=== PATIENT | male | born 1945 | race Caucasian/White ===

== ENCOUNTER 2021-08-02 12:01 | Inpatient (IN) | payer MEDICARE, OTHER ==
[~2021-08-02] VITALS: Ht 175.3 cm; Wt 62.6 kg
[2021-08-02] MEDS ORDERED: BENZ0.5T43 PO (12:14)
[2021-08-02] MEDS ORDERED: DIVA125T2 PO (12:14)
[2021-08-02] MEDS ORDERED: BUSP15TA3 PO (12:14)
--- NOTE | 2021-08-02 12:41 | NUR ---
Called report to JONATHON Biggs
[2021-08-02] MEDS ORDERED: ACETAMINOPHEN 325 MG TABLET PO PRN (14:30)
[2021-08-02] MEDS ORDERED: MAGNESIUM HYDROXIDE 30 ML LIQUID UDC PO PRN ×3 (14:30→17:45)
[2021-08-02] MEDS ORDERED: MAG HYDROX/AL HYDROX/SIMETH 30 ML LIQUID UDC PO PRN ×2 (14:30→17:30)
[2021-08-02] MEDS ORDERED: LORAZEPAM 0.5 MG TABLET PO PRN (14:30)
[2021-08-02] MEDS ORDERED: TEMAZEPAM 7.5 MG CAPSULE PO PRN (17:30)
[2021-08-02] MEDS ORDERED: BLOOD SUGAR DIAGNOSTIC 1 EACH STRIP VI ONE (18:00)
[2021-08-02] MEDS: BENZTROPINE MESYLATE 0.5 MG TABLET PO SCH (18:17)
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
--- NOTE | 2021-08-02 18:45 | NUR ---
GPS: Nursing Notes: Destructive Behavior to Others: Patient is awake and responding to his name, impaired judgment, gets easily irritable when redirected, poor anger management, violent outburst without provocation, verbal abusive toward staff, showing the middle finger when his demands are not met immediately, resistant with nursing care, poor grooming, incontinent of urine, refusing to shower, unable to formulate a viable plan for self care, continue to monitor for safety, continue with treatment plan.
[2021-08-02 21:09] VITALS: BP 108/55
[2021-08-03 07:30] VITALS: BP 125/81
--- NOTE | 2021-08-03 08:09 | NUR ---
GPS: CALLED RALPH, NIECE OF PT, LEFT A VOICEMAIL MESSAGE. PT RECEIVED AWAKE AND RESPONSIVE WITH GARBLED SPEECH. PT NOTED ARGUING SCREAMING AT THE ACTIVITY ROOM WITH OTHER PT. BOTH PT TO AVOID ANY PROBLEM. ENCOURAGED PT TO BE CALM AND MANAGE TEMPER. PT AGREES AND REDIRECTABLE AT THIS TIME.
[2021-08-03 08:30] LABS: BILIRUBIN,TOTAL 0.9 mg/dL (0.2-1.0); CREATININE 0.6 mg/dL (0.6-1.3); POTASSIUM 3.9 mmol/L (3.5-5.1); TOTAL PROTEIN, SERUM 7.3 g/dL (6.4-8.2)
[2021-08-03] MEDS: BENZTROPINE MESYLATE 0.5 MG TABLET PO SCH ×2 (08:49→18:10)
--- NOTE | 2021-08-03 09:20 | NUR ---
GPS: SPOKE WITH ZAYNAB ROSAS OVER THE PHONE. SHE'LL CALL BACK LATER IN THE AFTERNOON. SHE STATED " MENDEZ HARD TO UNDERSTAND MY UNCLE BECAUSE OF HIS GARBLED SPEECH DUE TO PARKINSON". ENSURE ZAYNAB THAT WE ARE GIVING THE MED FOR PARKINSON'S DISEASE.
[2021-08-03] MEDS: ENSURE ENLIVE (VAN) 240 ML LIQUID PO SCH ×2 (12:51→17:00)
--- NOTE | 2021-08-03 15:57 | NUR ---
SW Family Contact SW left a voicemail for patient's niece, Harriet ([phone]) requesting call back to discuss treatment and discharge plan. BRANDEE also tried calling Harriet at [phone]; however, no answer and voicemail was not set up for SW to leave message. Waiting for a call back.
--- NOTE | 2021-08-03 15:58 | NUR ---
Firearms Report SW completed and submitted a [employer] firearms report for 5150 grave disability certifications. A copy of report has been placed in patient chart.
--- NOTE | 2021-08-03 15:59 | NUR ---
Treatment Plan Patient refused to sign treatment plan due to disorganized thought process.
[2021-08-03 16:00] VITALS: BP 113/75
[2021-08-03 20:00] VITALS: BP 103/50
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
[2021-08-03] MEDS: QUETIAPINE FUMARATE 25 MG TABLET PO SCH (22:51)
[2021-08-04 07:30] VITALS: BP 118/72
[2021-08-04] MEDS: BENZTROPINE MESYLATE 0.5 MG TABLET PO SCH ×2 (08:53→16:58)
[2021-08-04] MEDS: QUETIAPINE FUMARATE 25 MG TABLET PO SCH ×2 (08:53→20:30)
[2021-08-04] MEDS: ENSURE ENLIVE (VAN) 240 ML LIQUID PO SCH ×3 (08:54→16:58)
--- NOTE | 2021-08-04 09:21 | NUR ---
SW Care Coordination Note BRANDEE called [facility] ([phone]) and spoke with Batsheva Ospina, clinical supervisor pairing and inspecting, and discussed treatment and discharge plan. Batsheva provided collateral information (see BRANDEE assessment). Batsheva stated pt does not have DPOA. Batsheva clarified that Harriet Grant ([phone]; [phone]) listed as emergency contact is pt's trimming caser with [facility]. Batsheva states pt is able to return to his apartment when he is ready for discharge and will continue to be supported by [facility].
--- NOTE | 2021-08-04 09:22 | NUR ---
BRANDEE Initial Discharge Note Pt currently resides at home alone at [address] [place] [address] ([phone]). BRANDEE contacted [facility] ([phone]) and spoke with Batsheva Ospina, clinical hairspring fabrication supervisor, who confirmed pt was residing at his residence alone. Pt continues to be supported by [facility] and is able to return to his apartment when he is ready for discharge. BRANDEE will work with pt, showcase trimmer, and MD to ensure a safe and proper discharge.
--- NOTE | 2021-08-04 12:51 | NUR ---
WOUND CARE CONSULT: PT PRESENTS WITH LEFT WRIST SKIN TEAR, RT LOWER LEG RAISED LESION AND LEFT LOWER LEG CRUSTED WOUND WITH SOME DRAINAGE, PRESENT ON ADMISSION. DR ALMEIDA NOTIFIED OF DPM CONSULT FOR LEGS. RECOMMENDATIONS MADE FOR WRIST WOUND CARE AND SKIN PROTECTION. DISCUSSED WITH NURSING STAFF. MD IN AGREEMENT WITH PLAN OF CARE.
[2021-08-04] MEDS: NEOMY/BACITRAC/POLYMI OINT 28.35 GM TUBE TOP SCH (13:00)
[2021-08-04 16:00] VITALS: BP 106/68
[2021-08-04] MEDS: LORAZEPAM 1 MG TABLET PO PRN (17:01)
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
[2021-08-04 20:08] VITALS: BP 111/62
[2021-08-05] MEDS: TEMAZEPAM 7.5 MG CAPSULE PO PRN (00:35)
--- NOTE | 2021-08-05 05:41 | NUR ---
The patient slept only 3.45 hours during the shift. Patient is impulsive and has no control over verbal outbursts. The patient is labile and verbally abusive to the staff. Reassurance and reorientation to the situation, over and over were provided, was not effective. Multiple attempts to explain the unit rules and to keep safety stratiges in place were met with resistance. Continuing to monitor the patient for behavior escalation, to to keep patient as safe as possible.
[2021-08-05 07:30] VITALS: BP 114/73
[2021-08-05] MEDS: BENZTROPINE MESYLATE 0.5 MG TABLET PO SCH ×2 (09:10→16:36)
[2021-08-05] MEDS: QUETIAPINE FUMARATE 25 MG TABLET PO SCH ×2 (09:10→20:03)
[2021-08-05] MEDS: ENSURE ENLIVE (VAN) 240 ML LIQUID PO SCH ×3 (09:10→16:36)
[2021-08-05] MEDS: NEOMY/BACITRAC/POLYMI OINT 28.35 GM TUBE TOP SCH (09:11)
--- NOTE | 2021-08-05 11:49 | NUR ---
SW Care Coordination Note SW received voice mail from Batsheva Ospina ([phone]) with [facility] informing of pt's history of extensive drug use. Batsheva reported pt has history of large amounts of LSD over long period of time and more recently with alcohol use. Pt has Parkinson's Disease. Batsheva stated pt may be transferred to a SNF at [facility] when he is ready for discharge. Pt's medical doctor is Dr. Sinai Chase at [facility] in [place], [place].
[2021-08-05 20:01] VITALS: BP 112/69
[2021-08-06 07:48] VITALS: BP 125/71
[2021-08-06] MEDS: BENZTROPINE MESYLATE 0.5 MG TABLET PO SCH ×2 (08:16→16:23)
[2021-08-06] MEDS: QUETIAPINE FUMARATE 25 MG TABLET PO SCH (08:16)
[2021-08-06] MEDS: ENSURE ENLIVE (VAN) 240 ML LIQUID PO SCH ×3 (08:16→17:35)
[2021-08-06] MEDS: NEOMY/BACITRAC/POLYMI OINT 28.35 GM TUBE TOP SCH (08:17)
--- NOTE | 2021-08-06 15:15 | NUR ---
Received patient awake in his room. A/OX 2 to person, place. Pt. affect is disorganized, confused, irritable at times, short temper, poor impulse control. Pt. showered today and scab on upper left arm came off, dressing on place. Multiple abrasions, bruises, and scabs on upper and lower extremities, antibiotic ointment applied as prescribed. Patient ambulates independently. Self care. Continent. Active listening provided. Fall and safety precautions implemented.
[2021-08-06 16:22] VITALS: BP 108/76
[2021-08-06 20:00] VITALS: BP 139/64
[2021-08-06] MEDS ORDERED: QUETIAPINE FUMARATE 100 MG TABLET PO SCH (21:00)
[2021-08-07 07:41] VITALS: BP 106/69
[2021-08-07] MEDS: BENZTROPINE MESYLATE 0.5 MG TABLET PO SCH ×3 (08:23→16:10)
[2021-08-07] MEDS: ENSURE ENLIVE (VAN) 240 ML LIQUID PO SCH ×3 (08:23→16:08)
[2021-08-07] MEDS: NEOMY/BACITRAC/POLYMI OINT 28.35 GM TUBE TOP SCH (08:23)
[2021-08-07] MEDS: QUETIAPINE FUMARATE 25 MG TABLET PO SCH ×2 (08:23→12:49)
[2021-08-07 12:25] LABS: *BILIRUBIN,URIN NEGATIVE (NEGATIVE); *BLOOD, URINE NEGATIVE (NEGATIVE); *CLARITY,URINE CLEAR (CLEAR); *COLOR,URINE YELLOW (YELLOW); *KETONES,URINE NEGATIVE (NEGATIVE); *UROBILINOGEN,URINE 0.2 E.U./dl (NORMAL); LEUKOCYTE ESTERASE ,URINE NEGATIVE (NEGATIVE); NITRITE, URINE NEGATIVE (NEGATIVE); UGLUCOSE NEGATIVE (NEGATIVE)
[2021-08-07 15:56] VITALS: BP 98/60
[2021-08-07] MEDS: QUETIAPINE FUMARATE 100 MG TABLET PO SCH (20:41)
[2021-08-08] MEDS ORDERED: OLANZAPINE 10 MG VIAL IM ONE (00:15)
--- NOTE | 2021-08-08 06:18 | NUR ---
GPS/NSG Patient became agitated and combative, yelling and scaring the patients on the unit. displaying threatening gestures. Dr. Alba contacted IM times one obtained however patient de-escalated and the patient ended up falling asleep. IM not administered.
[2021-08-08 07:38] VITALS: BP 117/74
[2021-08-08] MEDS: BENZTROPINE MESYLATE 0.5 MG TABLET PO SCH ×2 (08:49→16:41)
[2021-08-08] MEDS: ENSURE ENLIVE (VAN) 240 ML LIQUID PO SCH ×3 (08:49→17:39)
[2021-08-08] MEDS: QUETIAPINE FUMARATE 25 MG TABLET PO SCH ×2 (08:53→12:28)
[2021-08-08] MEDS: NEOMY/BACITRAC/POLYMI OINT 28.35 GM TUBE TOP SCH (08:54)
--- NOTE | 2021-08-08 09:17 | NUR ---
SW Discharge Plan Update SW called [facility] and left voice mail for Batsheva Ospina ([phone]) requesting call back. Batsheva stated in previous voice mail that pt may transfer to SNF at [facility] when he is ready for discharge. SW waiting for call back to discuss referral and discharge to SNF at [facility].
[2021-08-08 16:10] VITALS: BP 146/77
--- NOTE | 2021-08-08 20:00 | NUR ---
RECEIVED PATIENT IN THE HALLWAY, HE IS NOTED A/O X 2, HE IS PACING THE HALLWAY. NOTED EASILY IRRITABLE, VERBALLY ABUSIVE, LABILE AND HARD TO REDIRECT. PATIENT REQUIRED MULTIPLE REDIRECTION. HE REFUSED V/S. HE IS REASSURED FOR HIS SAFETY. SAFETY AND FALL PRECAUTION IN PLACE. HE WAS GIVEN PO FLUIDS AND SNACKS. WILL CONTINUE TO MONITOR.
[2021-08-08] MEDS: QUETIAPINE FUMARATE 100 MG TABLET PO SCH (20:09)
--- NOTE | 2021-08-09 02:00 | NUR ---
PATIENT NOTED PACING THE HALLWAY, UNABLE TO STAY IN BED, UNABLE TO SLEEP. A "SLEEPING PILL" WAS OFFERED BUT HE REFUSED. MULTIPLE REDIRECTION GIVEN YET INEFFECTIVE. WILL CONTINUE TO MONITOR.
--- NOTE | 2021-08-09 06:47 | NUR ---
PATIENT SLEPT FOR APPROX 3.30 HRS THROUGH THE NIGHT. HE WAS NOTED PACING THE HALLWAY ON AND OFF THROUGH THE NIGHT. HE WAS OBSERVED MASTURBATING TO HIMSELF. CONTINUE LABILE AND EASILY IRRITABLE. WILL CONTINUE TO MONITOR.
[2021-08-09 07:30] VITALS: BP 105/69
[2021-08-09] MEDS: QUETIAPINE FUMARATE 100 MG TABLET PO SCH ×3 (08:42→20:42)
[2021-08-09] MEDS: BENZTROPINE MESYLATE 0.5 MG TABLET PO SCH ×2 (08:42→17:11)
[2021-08-09] MEDS: NEOMY/BACITRAC/POLYMI OINT 28.35 GM TUBE TOP SCH (08:43)
[2021-08-09] MEDS: ENSURE ENLIVE (VAN) 240 ML LIQUID PO SCH ×3 (08:43→17:13)
--- NOTE | 2021-08-09 16:55 | NUR ---
Patient is received awake in his room. A/O X 2 to person, place. Pt. affect is labile, poor impulse control, unexpected outbursts, make a fist and hits the counter or tate, disorganized, confused at times. Pt. cannot hear well. Compliant with medications. Ambulates independently. Pt. requires more than minimal assistance with ADL. Pt. is encourage to vent feelings and emotions. Fall and safety precautions implemented.
--- NOTE | 2021-08-09 17:15 | NUR ---
PROBABLE CAUSE HEARING: Patient's probable cause hearing was held today. 5250 hold upheld for DTO/GD.
[2021-08-09] MEDS: LORAZEPAM 1 MG TABLET PO PRN (20:42)
--- NOTE | 2021-08-10 05:41 | NUR ---
The patient has been up and down all night. On and off aggressive, yelling and threatening. Poor impulse control. The patient is confused and disoriented, plus hard of hearing. At times, waking the whole unit up with his yelling. The patient has multiple requests and throws things if he does not get his way. The patient is difficult to communicate ,with and is paranoid most of the time. He does not respond to redirection. Due to this patients unwillingness to follow the unit rules, Safety Stratiges are in place and constant monitoring needed to keep staff, peers and patient safe.
[2021-08-10] MEDS: ENSURE ENLIVE (VAN) 240 ML LIQUID PO SCH ×3 (08:51→17:06)
[2021-08-10] MEDS: BENZTROPINE MESYLATE 0.5 MG TABLET PO SCH ×2 (08:51→17:04)
[2021-08-10] MEDS: QUETIAPINE FUMARATE 100 MG TABLET PO SCH ×3 (08:51→20:17)
[2021-08-10] MEDS: NEOMY/BACITRAC/POLYMI OINT 28.35 GM TUBE TOP SCH (08:52)
--- NOTE | 2021-08-10 15:55 | NUR ---
Received patient awake in his room. A/O X 2 to person, place. Pt. affect is labile, poor impulse control, disorganized, confused, outbursts at times, yells, redirectable. Compliant with medications. Ambulates without assistance. Patient is encourage to verbalize concerns. Fall and safety precautions implemented.
[2021-08-10 16:00] VITALS: BP 96/62
[2021-08-10 20:12] VITALS: BP 107/68
--- NOTE | 2021-08-11 02:10 | NUR ---
Received patient in the hallway, poor insight and poor judgement. Patient needs to redirected. Med compliant. Patient is dishevel. Interacts with staff. Patient will remain in a psych facility for further evaluation and treatment.
[2021-08-11 07:30] VITALS: BP 120/71
[2021-08-11] MEDS: BENZTROPINE MESYLATE 0.5 MG TABLET PO SCH ×2 (08:28→17:24)
[2021-08-11] MEDS: ENSURE ENLIVE (VAN) 240 ML LIQUID PO SCH ×3 (08:28→17:25)
[2021-08-11] MEDS: QUETIAPINE FUMARATE 100 MG TABLET PO SCH ×3 (08:28→21:43)
[2021-08-11] MEDS: NEOMY/BACITRAC/POLYMI OINT 28.35 GM TUBE TOP SCH (08:28)
--- NOTE | 2021-08-11 15:44 | NUR ---
Received patient awake in his room. A/O X 2 to person, place. Pt. affect is cooperative, talkative, irritable at times. Compliant with medications. Ambulates without assistance. Pt. is encourage to verbalize concerns. Fall and safety precautions implemented.
[2021-08-11 16:00] VITALS: BP 111/68
[2021-08-11 20:00] VITALS: BP 94/56
[2021-08-11] MEDS: LORAZEPAM 1 MG TABLET PO PRN (21:43)
[2021-08-12] MEDS: TEMAZEPAM 7.5 MG CAPSULE PO PRN (00:49)
--- NOTE | 2021-08-12 05:40 | NUR ---
Patient was asleep at the start of the shift, but woke up irritated and angry. The patient wanted a sleeping medication which was provided , along with some food. This patient has poor impulse control and proceeded to be frustrated with this song writer for unknown reasons. At that time,he Slammed the door to his room. The sleep hours were 8.00. Continuing to monitor him for safety and behavior escalation. No real changes in behavior is noted from the previous shifts.
[2021-08-12 07:30] VITALS: BP 107/76
[2021-08-12] MEDS: NEOMY/BACITRAC/POLYMI OINT 28.35 GM TUBE TOP SCH (08:20)
[2021-08-12] MEDS: BENZTROPINE MESYLATE 0.5 MG TABLET PO SCH (08:20)
[2021-08-12] MEDS: QUETIAPINE FUMARATE 100 MG TABLET PO SCH (08:20)
[2021-08-12] MEDS: ENSURE ENLIVE (VAN) 240 ML LIQUID PO SCH ×2 (08:20→12:42)
--- NOTE | 2021-08-12 10:07 | NUR ---
BRANDEE Discharge Note Pt will be discharged to [facility] [place] [address] ([phone]). BRANDEE spoke with D[facility] ([phone]) and David ([phone]) who state they are ready to accept the patient today. Pt is aware and agreeable with discharge plans. Pt is alert and oriented x1, is unable to plan for self-care at this time. Pt denies any suicidal or homicidal ideation. Pt will follow-up with Psychiatrist, Dr. Gan and Mission Analyst, Dr. Harris . Pt presents with calm mood and congruent affect.
--- NOTE | 2021-08-12 11:00 | NUR ---
Social Work Coordination of Care: Belt Buckle Maker faxed patient's referral packet including: History and Physical, Consultation, Progress Notes, Medication List and Labs to the following facilities for review and possible [facility] placement: [facility] [address] [place] [address] T: ([phone]) F: ([phone]).
--- NOTE | 2021-08-12 13:29 | NUR ---
PT LEFT UNIT ON [facility] ACCOMPANIED BY HEAT PLANT SPECIALIST'. PT IS CALM AND COOPERATIVE. NO AGGRESSIVE OR COMBATIVE BEHAVIOR NOTED. DENIES SI. LEFT WITH ALL NOTED BELONGINGS AND PAPERWORK. IN NO ACUTE DISTRESS.
== END 2021-08-12 13:20 | DRG 885 ==
LOC: ER 12:01 → GPS 12:57
PROVIDERS: ADMIT Psychiatry & Neurology Psychiatry; ATTEND Student in an Organized Health Care Education/Training Program
DX: F20.0 Paranoid schizophrenia (principal); L97.821 Non-pressure chronic ulcer of other part of left lower leg limited to breakdown of skin; L97.811 Non-pressure chronic ulcer of other part of right lower leg limited to breakdown of skin; G20 Parkinson's disease; Z20.822 Contact with and (suspected) exposure to COVID-19; F17.210 Nicotine dependence, cigarettes, uncomplicated
CPT/HCPCS: 36415; 84443; 87086; 93005; 97161; A4663